=== PATIENT | male | born 1945 ===

== ENCOUNTER 2016-08-16 22:42 | Emergency (ER) | payer MEDICARE ==
[2016-08-16 22:54] VITALS: BP 124/62; PULSE 92; RESP 18; TEMP 97.9; O2SAT 98
[2016-08-16] MEDS ORDERED: Lidocaine 5% Patch TD STA (23:01)
[2016-08-16] MEDS ORDERED: Oxycodone/Acetaminophen 5/325 mg Tab PO STA (23:01)
[2016-08-16] MEDS ORDERED: Morphine 2 mg/ml ISec IM STA (23:02)
--- NOTE | 2016-08-16 23:09 | ED PDOC ---
Arrival/HPI <Wilber Osullivan - Last Filed: 08/17/16 00:47> - General Historian: Patient <Garcia Ivey - Last Filed: 08/17/16 01:29> - General Chief Complaint: Back Pain Time Seen by Provider: 08/16/16 22:54 - History of Present Illness Narrative History of Present Illness (Text): 08/16/16 23:09 71 y/o male, pmh including chronic lower back pain with multiple back surgery, c /o lower back pain on and off for months. Pt. stated that the pain started to have pain again tonight, same as before, no numbness or tingling, no urinary or bowel incontinence or retention, no night sweat, no dizziness, no rash, no dysuria, no other medical or psychological complaints. (Garcia Ivey) Past Medical History - Provider Review Nursing Documentation Reviewed: Yes - Psychiatric Hx Substance Use: No <Garcia Ivey - Last Filed: 08/17/16 01:29> Family/Social History - Physician Review Nursing Documentation Reviewed: Yes Family/Social History: Unknown Family HX Smoking Status: no Hx Alcohol Use: No Hx Substance Use: No <Garcia Ivey - Last Filed: 08/17/16 01:29> Allergies/Home Meds <Wilber Osullivan - Last Filed: 08/17/16 00:47> <Garcia Ivey - Last Filed: 08/17/16 01:29> Allergies/Adverse Reactions: Allergies No Known Allergies Allergy (Verified 08/16/16 22:54) Review of Systems - Review of Systems Constitutional: absent: Fatigue, Fevers Eyes: absent: Vision Changes ENT: absent: Hearing Changes Respiratory: absent: SOB, Cough Cardiovascular: absent: Chest Pain Gastrointestinal: absent: Abdominal Pain, Nausea, Vomiting Genitourinary Male: absent: Dysuria, Frequency, Hematuria, Urinary Output Changes Musculoskeletal: Back Pain. absent: Arthralgias, Neck Pain, Joint Swelling, Myalgias Skin: absent: Rash, Pruritis, Skin Lesions, Laceration, Abscess, Ulcer Neurological: absent: Headache, Dizziness <Garcia Ivey - Last Filed: 08/17/16 01:29> Physical Exam Vital Signs Reviewed: Yes Temperature: Afebrile Blood Pressure: Normal Pulse: Regular Respiratory Rate: Normal Appearance: Positive for: Well-Appearing, Non-Toxic, Comfortable Pain Distress: Moderate Mental Status: Positive for: Alert and Oriented X 3 - Systems Exam Head: Present: Atraumatic, Normocephalic Pupils: Present: PERRL Extroacular Muscles: Present: EOMI Conjunctiva: Present: Normal Mouth: Present: Moist Mucous Membranes Neck: Present: Normal Range of Motion Respiratory/Chest: Present: Clear to Auscultation, Good Air Exchange. No: Respiratory Distress, Accessory Muscle Use Cardiovascular: Present: Regular Rate and Rhythm, Normal S1, S2. No: Murmurs Abdomen: Present: Normal Bowel Sounds. No: Tenderness, Distention, Peritoneal Signs Back: Present: Normal Inspection, Paraspinal Tenderness, Other (LS spine: visible multiple scars noted on the lumbar region, +ttp on the bilateral paraspinal muscle region, no rash, FROM without limitation, sensation intact, motor 5/5). No: Midline Tenderness, Pain with Leg Raise, Decubitus Ulcer Upper Extremity: Present: Normal Inspection. No: Cyanosis, Edema Lower Extremity: Present: Normal Inspection. No: Edema Neurological: Present: GCS=15, CN II-XII Intact, Speech Normal Skin: Present: Warm, Dry, Normal Color. No: Rashes Psychiatric: Present: Alert, Oriented x 3, Normal Insight, Normal Concentration <Garcia Ivey - Last Filed: 08/17/16 01:29> Vital Signs Temp Pulse Resp BP Pulse Ox 08/16/16 22:51 97.9 F 92 H 18 124/62 98 Medical Decision Making <Wilber Osullivan - Last Filed: 08/17/16 00:47> - RAD Interpretation Paid Search Analyst: Radiologist <Garcia Ivey - Last Filed: 08/17/16 01:29> ED Course and Treatment: 08/16/16 23:11 -CT Lumbar spine -Morphine 2mg IM/lidoderm patch -Observe and reassess 08/17/16 01:26 -Back pain decreased, CT show no acute fractures or subluxation. -Discharge home with lidoderm patch, cane, stay hydrated, bed rest, follow up with your own pmd and pain management within 2 days, return to the ER for any new or worsening signs or symptoms. (Garcia Ivey) - RAD Interpretation Radiology Orders: 08/16/16 23:01 LUMBAR SPINE W/O CONTRAST [CT] Stat FINDINGS: Artifacts: There is streak artifact from orthopedic hardware. Vertebrae: Bony structures are mildly osteopenic. Visualized vertebral bodies are normal in height. There is minimal superior endplate deformity L1, L2 and L3, age-indeterminate. There are no wedge compression fractures. Posterior elements T12-L3 are intact. There is mild posterior disc space narrowing T12/L1-L1/L2. There is small degenerative osteophytes. Postsurgical changes of anterior and posterior spinal fusion L4/L5/S1. There is a cage in the L4-5 disc space. There is marked narrowing of the L5-S1 disc space. There is an L5 laminectomy defect. Right sacroiliac joint is patent. 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 Discs/spinal canal/neural foramina: See above. Soft tissues: Psoas and paraspinous muscles are unremarkable. Vasculature: There are vascular calcifications. IMPRESSION: Anterior posterior lumbar fusion L4/L5/S1, no instrument failure; osteopenia and degenerative change; no wedge compression fractures Thank you for allowing us to participate in the care of your patient. Dictated and Authenticated by: Michelle Hanks MD 08/17/2016 1:10 AM Eastern Time ([place] & [place]) (Garcia Ivey) - Medication Orders Current Medication Orders: Discontinued Medications Lidocaine (Lidoderm) 1 ea TD STAT STA Stop: 08/16/16 23:02 Last Admin: 08/16/16 23:38 Dose: 1 ea Morphine Sulfate (Morphine) 2 mg IM STAT STA Stop: 08/16/16 23:03 Last Admin: 08/16/16 23:39 Dose: 2 mg - PA / LEGAL ENTITY CONTROLLER / Resident Statement SHAYNE has reviewed & agrees with the documentation as recorded. SHAYNE has examined the patient and agrees with the treatment plan. <Wilber Osullivan - Last Filed: 08/17/16 00:47> - PA / LEGAL ENTITY CONTROLLER / Resident Statement SHAYNE has reviewed & agrees with the documentation as recorded. <Garcia Ivey - Last Filed: 08/17/16 01:29> Disposition/Present on Arrival <Wilber Osullivan - Last Filed: 08/17/16 00:47> - Present on Arrival Any Indicators Present on Arrival: No History of DVT/PE: No History of Uncontrolled Diabetes: No Urinary Catheter: No History of Decub. Ulcer: No History Surgical Site Infection Following: None - Disposition Have Diagnosis and Disposition been Completed?: Yes Disposition Time: 23:11 Patient Plan: Discharge <Garcia Ivey - Last Filed: 08/17/16 01:29> - Disposition Diagnosis: Lower back pain Disposition: HOME/ ROUTINE Condition: IMPROVED Additional Instructions: Discharge home with lidoderm patch, cane, stay hydrated, bed rest, follow up with your own pmd and pain management within 2 days, return to the ER for any new or worsening signs or symptoms. Prescriptions: Lidocaine 5% [Lidoderm] 1 patch TOP DAILY PRN #[id number] patch PRN Reason: Other Referrals: [facility] [place] [Outside] - Follow up with primary Forms: WORK NOTE
--- NOTE | 2016-08-17 01:10 | CT ---
EXAM: CT Lumbar Spine Without Intravenous Contrast CLINICAL HISTORY: 71 years old, male; Pain; Low back pain; Additional info: Lower back pain x 1 day TECHNIQUE: Axial computed tomography images of the lumbar spine without intravenous contrast. This CT exam was performed using one or more of the following dose reduction techniques: automated exposure control, adjustment of the mA and/or kV according to patient size, and/or use of iterative reconstruction technique. Coronal and sagittal reformatted images were created and reviewed. EXAM DATE/TIME: 08/16/2016 11:01 PM COMPARISON: There are no prior studies for comparison. FINDINGS: Artifacts: There is streak artifact from orthopedic hardware. Vertebrae: Bony structures are mildly osteopenic. Visualized vertebral bodies are normal in height. There is minimal superior endplate deformity L1, L2 and L3, age-indeterminate. There are no wedge compression fractures. Posterior elements T12-L3 are intact. There is mild posterior disc space narrowing T12/L1-L1/L2. There is small degenerative osteophytes. Postsurgical changes of anterior and posterior spinal fusion L4/L5/S1. There is a cage in the L4-5 disc space. There is marked narrowing of the L5-S1 disc space. There is an L5 laminectomy defect. Right sacroiliac joint is patent. 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 Discs/spinal canal/neural foramina: See above. Soft tissues: Psoas and paraspinous muscles are unremarkable. Vasculature: There are vascular calcifications. IMPRESSION: Anterior posterior lumbar fusion L4/L5/S1, no instrument failure; osteopenia and degenerative change; no wedge compression fractures
== END 2016-08-17 01:30 | disposition home or self-care (01) ==
LOC: ED 22:42 → MERGE 22:42 → ED 08-17 01:30
DX: M54.5 Low back pain (principal)
CPT/HCPCS: 72131; 96372; 99283; J2270